=== PATIENT | female | born 2000 | race Hispanic/Latino ===

== ENCOUNTER 2023-01-20 18:04 | Emergency (ER) | payer MEDICAID, SELFPAY ==
[2023-01-20 18:06] VITALS: BP 120/91; PULSE 98; RESP 14; TEMP 36.6; O2SAT 99; BMI 34.7
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
[2023-01-20] MEDS: Ondansetron 4 MG/2 ML Vial IV (18:43)
[2023-01-20] MEDS: Morphine 4 MG/ML Syringe IV (18:44)
[2023-01-20 18:51] LABS: Absolute Lymphocyte Count 2.57 X10^3/uL (0.83-4.51); Basophil# 0.07 X10^3/uL; Basophil% 0.8 % (0-1); Eosinophils% 1.2 % (0-5); Hematocrit 42.8 % (37-47); Lymphocyte # 2.57 X10^3/ul (0.83-4.51); Lymphocyte % 30.4 % (19-41); Mean Corp Hgb Conc 32.7 g/dL (32-36); Mean Corpuscular Hgb 28.7 pg (27.0-32.0); Mean Corpuscular Volume 87.7 fL (81-99); Mean Platelet Vol. 9.8 fl (6.2-12.0); Monocyte# 0.67 X10^3/uL; Monocyte% 7.9 % (0-10); NRBC Flagged by Analyzer 0 % (0-5); Neutrophil # 5.03 X10^3/uL (2.7-7.7); Neutrophil % 59.5 % (47-70); Platelet Count 291 K/mm3 (150-450); RBC Distribution Width CV 12.6 % (11.6-14.6); RBC Distribution Width SD 40.3 fl (35.1-43.9); Red Blood Count 4.88 M/mm3 (4.2-5.4); White Blood Count 8.5 K/mm3 (4.4-11.0)
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
[2023-01-20 19:17] LABS: AST(SGOT) 15 U/L (15-37); Alanine Aminotransfer ALT/SGPT 44 U/L (13-56); Albumin, Serum 3.7 g/dL (3.2-5.0); Alkaline Phosphatase 63 U/L (45-117); Anion Gap 5 (5-15); BUN 9 mg/dL (7-18); Calcium,Total 8.4 mg/dL (8.5-10.1); Chloride 108 mmol/L (98-107); Creatinine, Serum 0.75 mg/dL (0.55-1.02); EST Glomerular Filtration Rate 101 mL/min (>60); Est Glom Filt Rate - Afr Amer 122 mL/min (>60); Globulin 3.8 g/dL (2.2-4.2); Glucose 98 mg/dL (74-106); Lipase 38 U/L (13-75); Potassium 3.8 mmol/L (3.5-5.1); Protein, Total 7.5 g/dL (6.4-8.2); Sodium Level 141 mmol/L (136-145)
[2023-01-20 19:26] LABS: Bacteria 0 SEEN /hpf (None Seen); Mucous, Urine 0 SEEN /hpf (<or=2+)
[2023-01-20 19:57] LABS: Color, Urine Yellow (Yellow); Glucose, Dipstick Normal (Normal); Ketone-Dipstick 5 mg/dl (Negative); Leukocyte Esterase-Dipstick 100 /ul (Negative); Nitrite-Dipstick Negative (Negative); Occult Blood-Urine 10 /ul (Negative); Protein-Dipstick 30 mg/dl (Negative); Specific Gravity, Urine 1.015 (1.002-1.030); Urine Clarity Clear (Clear); Urine Urobilinogen 1 mg/dl (Normal)
[2023-01-20 20:19] LABS: Urine Bilirubin Dipstick 1 mg/dL (Negative)
[2023-01-20 20:37] LABS: Red Blood Cells-Urine 0-5 SEEN /hpf (0-5); Squamous Epithelial Cells - UA 0-5 SEEN /hpf (5-10); White Blood Cells 5-10 SEEN /hpf (0-5)
== END 2023-01-20 20:12 | disposition home or self-care (01) ==
PROVIDERS: Emergency Provider Emergency Medicine; Visit Provider Emergency Medicine
DX: S30.1XXA Contusion of abdominal wall, initial encounter (principal); S20.20XA Contusion of thorax, unspecified, initial encounter; V89.2XXA Person injured in unspecified motor-vehicle accident, traffic, initial encounter
CPT/HCPCS: 71260; 73630; 74177; 80053; 81001; 83690; 85025; 93005; 96374; 96375; 99283; Q9967; A4216; J2405

== ENCOUNTER 2023-07-26 22:25 | Emergency (ER) | payer MEDICAID, SELFPAY ==
[2023-07-26 22:25] VITALS: BP 134/93; PULSE 111; RESP 24; TEMP 36.3; O2SAT 98; BMI 34.3
--- NOTE | 2023-07-26 22:41 | EDS_ITS ---
HPI History of Present Illness Chief Complaint: General Illness Informant: patient Narrative Narrative: Patient has complaints of feeling ill for about a week now. It started with fevers. She has developed aches. She quickly developed a cough. She states the cough causes soreness in her chest. It is soreness with coughing but not chest pain continually. She has had runny nose. Some ear pressure. She states now she is getting to lose her voice. She has been trying to maintain fluids but appetite has been down. But no vomiting or nausea. Initially she was not moving her bowels but now she is move them and has had blood in them a little bit. But she is not having abdominal pain. No history of inflammatory bowel disease in her the family. No history of heart disease. No history of DVT or PE. No recent travel surgery or immobilization. She is not on control pill. She has not had hemoptysis. PFSH PFSH Home Medications hydrocodone-acetaminophen 5-325mg 5mg-325mg 1 tab PO Q4H PRN PRN Pain 3 days #10 TABLETS 01/20/23 [Rx Last Taken Unknown] hydrocodone-acetaminophen 5-325mg 5mg-325mg 1 tab PO Q6H PRN PRN Pain 3 days #10 TABLETS 01/20/23 [Rx Last Taken Unknown] Allergy/AdvReac Type Severity Reaction Status Date / Time No Known Allergies Allergy Verified 07/26/23 22:28 Social History Smoking Status: Never smoker ROS ROS ED ROS Narrative A complete review of systems was performed and is negative except as documented in the history of present illness. Some specific details below. Constitutional: Positive fevers chills and myalgias and malaise. EYE: No visual complaints or pain. ENT: Initially sore throat. Now not sore but losing voice. Nasal congestion rhinorrhea and earaches. CV: No chest pain or palpitations except her chest is sore with coughing. Respiratory: Frequent cough. No sputum production or hemoptysis. Not actually short of breath. GI: Appetite has been down. No nausea vomiting. She has had initially poor bowel movements but was not eating. Now she has a little bit of blood when she moves her bowels. : No frequency dysuria or hematuria. Musculoskeletal: No recent trauma. She does have some diffuse myalgias. Skin: No rash. Nondiaphoretic. Neuro: No weakness or numbness. Endocrine: No polyuria or polydipsia. EXAM Physical Exam Narrative Exam Narrative: CONSTITUTIONAL: Patient is nontoxic in appearance. The patient looks comfortable. Work of breathing looks normal. She does have a frequent dry cough. HEENT: No notable trauma. Mucous membranes still moist. No sinus tenderness. No indication of pain with swallowing. No exudate. Voice is just slightly raspy but no difficulty handling secretions. Tympanic membranes are both completely clear. EYES: No conjunctival injection. No proptosis. No icterus. NECK:No JVD. No stridor. CARDIOVASCULAR: Mildly tachycardic rate. Regular rhythm. No notable murmur. No JVD. RESPIRATORY: No respiratory distress. Breathing is unlabored. Deep breaths do cause a cough. She has a slight wheeze with her cough or forced expiration. No actual pain taking a deep breath but she does have some discomfort with coughing. She also has reproducible parasternal chest wall tenderness on palpation. GASTROINTESTINAL: Not distended. Bowel sounds are normal. No tenderness. No guarding. No rebound. No palpable mass. No bruit is heard. Overall abdomen quite benign. GENITOURINARY: No tenderness over the bladder. No CVA tenderness. MUSCULOSKELETAL: Atraumatic. No peripheral edema. No cord. No tenderness along the deep venous system. No asymmetry. No distended veins. NEUROLOGICAL: Patient is alert and appropriate. No focal deficit noted. SKIN: No noted rashes. No diaphoresis. PSYCHIATRIC: Patient is calm. Mood is appropriate. Const Vital Signs: 07/26/23 22:25 07/26/23 22:54 07/26/23 23:33 Temperature 97.4 F L Temperature Source Temporal Pulse Rate 111 H 115 H 110 H Respiratory Rate 24 H 20 H 14 Blood Pressure 134/93 H 123/88 H Blood Pressure Mean 106 99 Pulse Ox 98 97 Oxygen Delivery Method Room Air Room Air MDM MDM MDM Narrative Medical decision making narrative: My independent interpretation of the patient's PA and lateral chest x-ray shows no acute process. Final reading is pending. Patient's CBC is normal including hemoglobin and platelets. Patient's electrolytes are overall normal other than mild elevation of glucose at 118. Patient's viral studies show positive influenza B which is consistent with her symptoms. I explained to the patient that she is not a candidate for Tamiflu. We discussed diet, fluids, fever control, isolating oneself and expected course of illness as well as reasons to return. Lab Data Attestation: I reviewed the patient's lab results. Labs: Laboratory Results - last 24 hr 07/26/23 22:45 WBC 6.6 RBC 4.69 Hgb 13.3 Hct 41.8 MCV 89.1 MCH 28.4 MCHC 31.8 L RDW Std Deviation 41.3 RDW Coeff of Mercedes 12.7 Plt Count 224 MPV 10.0 Immature Gran % (Auto) 0.300 Neut % (Auto) 67.2 Lymph % (Auto) 21.0 [place] % (Auto) 11.2 H Eos % (Auto) 0.0 Baso % (Auto) 0.3 Absolute Neuts (auto) 4.4 Absolute Lymphs (auto) 1.38 Nucleated RBC % 0 Sodium 138 Potassium 3.6 Chloride 106 Carbon Dioxide 27.0 Anion Gap 5 BUN 9 Creatinine 0.81 Estim Creat Clear Calc 97.52 Est GFR (MDRD) Af Amer 111 Est GFR (MDRD) Non-Af 92 BUN/Creatinine Ratio 11.2 Glucose 118 H Calcium 8.5 Discharge Plan Triage Chief Complaint: General Illness ED Provider: Michael Alejo Dx/Rx/DC Orders Clinical Impression: Viral URI with cough, Influenza B Instructions: ED Influenza (Adult) Prescriptions: No Action hydrocodone-acetaminophen 5-325 mg tablet 1 tab PO Q6H PRN PRN (Reason: Pain) 3 Days Qty: 10 0RF hydrocodone-acetaminophen 5-325 mg tablet 1 tab PO Q4H PRN PRN (Reason: Pain) 3 Days Qty: 10 0RF Stand Alone Forms: ED Work / School Excuse Primary Care Provider: MARGUERITE POLANCO Referrals: MARGUERITE POLANCO [Other] - 3-5 Days if not improving Disposition Disposition: Home, Self Care
[2023-07-26] MEDS: Ipratropium/Albuterol Sulfate 3 ML AMPUL.NEB INHALATION (22:53)
[2023-07-26 22:54] VITALS: PULSE 115; RESP 20
[2023-07-26 22:56] LABS: Absolute Lymphocyte Count 1.38 X10^3/uL (0.83-4.51); Absolute Neutrophil Count 4.4 X10^3/uL (2.0-7.7); Basophil# 0.02 X10^3/uL; Basophil% 0.3 % (0-1); Hematocrit 41.8 % (37-47); Hemoglobin 13.3 g/dL (12.0-15.0); Lymphocyte # 1.38 X10^3/ul (0.83-4.51); Mean Corp Hgb Conc 31.8 g/dL (32-36); Mean Corpuscular Hgb 28.4 pg (27.0-32.0); Mean Corpuscular Volume 89.1 fL (81-99); Monocyte# 0.74 X10^3/uL; Monocyte% 11.2 % (0-10); NRBC Flagged by Analyzer 0 % (0-5); Neutrophil # 4.42 X10^3/uL (2.7-7.7); Neutrophil % 67.2 % (47-70); Platelet Count 224 K/mm3 (150-450); RBC Distribution Width CV 12.7 % (11.6-14.6); RBC Distribution Width SD 41.3 fl (35.1-43.9); Red Blood Count 4.69 M/mm3 (4.2-5.4); White Blood Count 6.6 K/mm3 (4.4-11.0)
[2023-07-26 23:03] LABS: Anion Gap 5 (5-15); BUN 9 mg/dL (7-18); BUN/Creat Ratio 11.2 RATIO (10-20); Calcium,Total 8.5 mg/dL (8.5-10.1); Chloride 106 mmol/L (98-107); Creatinine, Serum 0.81 mg/dL (0.55-1.02); EST Glomerular Filtration Rate 92 mL/min (>60); Est Glom Filt Rate - Afr Amer 111 mL/min (>60); Estimated Creatinine Clearance 97.52 ml/min; Glucose 118 mg/dL (74-106); Potassium 3.6 mmol/L (3.5-5.1); Sodium Level 138 mmol/L (136-145)
--- OUTSIDE RECORDS SUMMARY | 2023-07-26 23:08 | XMS RPT_ITS | CCD ---
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 Grandmother age 63 Heart disease Maternal Grandmother age 63 Diabetes Maternal Grandmother age 63 Breast cancer Maternal Grandmother age 63 Arthritis Maternal Grandmother age 63 No Known Problems Father unknown Miscarriages / Stillbirths Mother Alfredo Hypertension Mother Lafredo Arthritis Mother Alfredo Breast cancer Mother Alfredo 35 alive age 50 Hyperlipidemia Mother Alfredo Ovarian cancer Mother Alfredo 35 No Known Problems Brother No Known Problems Brother Miscarriages / Stillbirths Sister No Known Problems Sister Health Maintenance Topic Date Due Hepatitis B Vaccines (1 of 3 - 3-dose series) Never done COVID-19 Vaccine (1) Never done MMR Vaccines (1 of 1 - Standard series) Never done Varicella Vaccines (1 of 2 - 2-dose childhood series) Never done HPV Vaccines (1 - 2-dose series) Never done Influenza Vaccine (1) 01/30/2023 Depression Screening 07/01/2023 Pap Smear 10/16/2025 Lipid Panel 07/01/2027 DTaP/Tdap/Td Vaccines (2 - Td or Tdap) 08/06/2032 Zoster Vaccines (1 of 2) 2048 HIV Screening Completed Hepatitis C Screening Completed HIB Vaccines Aged Out IPV Vaccines Aged Out Hepatitis A Vaccines Aged Out Meningococcal Vaccine Aged Out Rotavirus Vaccines Aged Out Pneumococcal Vaccine: Pediatrics (0 to 5 Years) and At-Risk Patients (6 to 64 Years) Aged Out Objective BP 105/61 (BP Location: Left arm, Patient Position: Sitting) Pulse 72 Temp 36.7 C (98 F) (Temporal) Ht 4' 11 (1.499 m) Wt 172 lb 12.8 oz (78.4 kg) BMI 34.90 kg/m Physical Exam Vitals and nursing note reviewed. Constitutional: Appearance: Normal appearance. Eyes: Extraocular Movements: Extraocular movements intact. Pupils: Pupils are equal, round, and reactive to light. Cardiovascular: Rate and Rhythm: Normal rate and regular rhythm. Pulses: Normal pulses. Heart sounds: Normal heart sounds. Pulmonary: Effort: Pulmonary effort is normal. Breath sounds: Normal breath sounds. Abdominal: General: Abdomen is flat. Bowel sounds are normal. Palpations: Abdomen is soft. Musculoskeletal: General: Normal range of motion. Cervical back: Normal range of motion and neck supple. No tenderness. Lymphadenopathy: Cervical: No cervical adenopathy. Skin: General: Skin is warm and dry. Capillary Refill: Capillary refill takes less than 2 seconds. Neurological: Mental Status: She is alert. Data Reviewed and Summarized Labs: Results for orders placed or performed in visit on 10/16/22 Hemoglobin A1c Result Value Ref Range HEMOGLOBIN A1C - [facility] 5.1 <5.7 % of total Hgb Testo,Free/Total-Female Result Value Ref Range TESTOSTERONE, TOTAL, MS 53 (H) 2 - 45 ng/dL TESTOSTERONE, FREE 13.1 (H) 0.1 - 6.4 pg/mL SEX HORMONE BINDING GLOBULIN 23 17 - 124 nmol/L Sureswab(R) Advanced Vaginitis Plus, TMA ([facility]) Result Value Ref Range SURESWAB(R) ADV BACTERIAL VAGINOSIS (BV), TMA POSITIVE (A) NEGATIVE Angelina species NOT DETECTED NOT DETECTED Angelina glabrata NOT DETECTED NOT DETECTED Trichomonas Vaginalis (TV) NOT DETECTED NOT DETECTED C. TRACHOMATIS RNA NOT DETECTED NOT DETECTED N. GONORRHOEAE RNA NOT DETECTED NOT DETECTED Pap Smear Result Value Ref Range Case Report Gynecologic Cytology Case: [id number] Authorizing Provider: Kim Garcia MD Collected: 10/16/2022 1009 Ordering Location: [facility] Received: 10/16/2022 1010 Obstetrics & Gynecology First Screen: Raina Deluna [place], CT Specimen: ThinPrep, Pap, Cervical/Endocervical Specimen Adequacy The specimen is satisfactory for examination. Endocervical/transformation component present. Interpretation NEGATIVE FOR SQUAMOUS INTRAEPITHELIAL LESION OR MALIGNANCY. Other Findings Shift in virgie suggestive of bacterial vaginosis. Additional Information Gynecologic cytology smear evaluation is subject to false positive and false negative interpretation as evidenced by published data. Your patient's Pap test results should thus be interpreted in conjunction with their clinical history and physical examination. Case Screening Location [facility], [address] [place] [id number]; CLIA: [id number]; Joint Commission: [id number]; CAP: [id number] Imaging/Testing: MARGUERITE POLANCO MD [facility] Medicine (Comment: Please note this report has been produced using speech recognition software and may contain errors related to that system including errors in grammar, punctuation, and spelling, as well as words and phrases that may be inappropriate. If there are any questions or concerns please feel free to contact the dictating provider for clarification.) Pt asked if they have been to specialist,been in ER /hospitalized or had testing since last visit. Yes Patient was able to ambulate safely to the examination room. Provider was not notified of possible fall risk INDIRECT SUPERVISION THIS SERVICE IS TO BE BILLED UNDER THE PRIMARY CARE EXCEPTION (MODIFIER -) During or immediately after this visit, I discussed this case with the treating resident. Our discussion included the history obtained by the resident, the resident's exam findings, and the resident's treatment plan. The resident's note reflects the information we discussed, and I agree with the resident's assessment and treatment plan. -Addy Briones MD, [facility] Family Medicine documented in this encounter [facility] 08-08-2022 Telephone encounter Note Spoke to patient regarding genetic testing results which were negative, meaning there were no mutations or VUS in the 36 genes analyzed. Aware that she will continue to be followed up as a high risk patient. Reminded of follow up appointment on 07/05/23 at 330pm. Aware that she can be seen here for any breast issues prior to this appointment. Patient agrees with the plan and verbalizes understanding. Copy of report mailed to patient. Copy already scanned into Media [facility] 08-08-2022 Miscellaneous Notes Spoke to patient regarding genetic testing results which were negative, meaning there were no mutations or VUS in the 36 genes analyzed. Aware that she will continue to be followed up as a high risk patient. Reminded of follow up appointment on 07/05/23 at 330pm. Aware that she can be seen here for any breast issues prior to this appointment. Patient agrees with the plan and verbalizes understanding. Copy of report mailed to patient. Copy already scanned into Media Left message for patient to call for results. documented in this encounter [facility] 08-06-2022 History of Presen t illness Narrative Patient was able to ambulate safely to the examination room. Provider was not notified of possible fall risk Pt asked if they have been to specialist,been in ER /hospitalized or had testing since last visit. YES-seen by breast center in [place]. Had breast exam and lipid panel drawn Images from the original note were not included. [facility] [address] [facility] [address] Dept: [phone] Dept Loc: [phone] Visit type: Established Reason for Visit: Follow-up Assessment and Plan 1. Obesity, Class I, BMI 30.0-34.9 (see actual BMI) - [facility] -Surgical Wt Mgmt 2. Need for tetanus booster - Tdap vaccine greater than or equal to 7 years old IM Apply for job - where she needs immunizations - up to date and tetanus given today. Struggles with obesity - healthy lifestyle and limited diet. Uses all organic food, eats all fresh food, use [employer] to track all food that she eats on a regular bases. Current treatment plan is effective, no change in therapy, orders and follow up as documented in EMR, reviewed compliance with lifestyle measures, reviewed diet, exercise and weight control, reviewed medications and side effects in detail Patient voiced full understanding and all questions were answered. Costs of various treatment options were considered in formulating this treatment plan with the patient. Patient was involved and agreeable in shared decision making. Follow up in about 3 months (around 11/06/2022) for weight loss. Subjective HPI Patient here for follow up: Saw genetic counselor and needs to follow up with an OBGYN - will need to have screening yearly given her high risk. Continues to struggle with losing weight - uses a daily tracker, exercises regularly. Did not tolerate spironolactone as it made her light headed. Needs form filled for her new job - had all childhood immunizations, does not live in high risk TB area - never lived out of the country, will need TDAP shot. No fever or chills. No abdomen pain . No other concerns expressed. Review of Systems As above No Known Allergies Outpatient Medications Prior to Visit Medication Sig Dispense Refill Levonorgestrel (Kyleena) 19.5 MG intrauterine device 1 each by IntraUTERine route Once. spironolactone (Aldactone) 25 MG tablet Take 0.5 tablets (12.5 mg) by mouth daily. 15 tablet 5 levonorgestrel (Liletta) 20.1 MCG/DAY IUD 1 each by IntraUTERine route Once. No facility-administered medications prior to visit. 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 Amin Social History Tobacco Use Smoking status: Never Smokeless tobacco: Never Substance Use Topics Alcohol use: Yes Comment: socially every other week No past surgical history on file. Family History Problem Relation Name Age of Onset Miscarriages / Stillbirths Mother Alfredo Hypertension Mother Alfredo Arthritis Mother Alfredo Breast cancer Mother Alfredo 35 alive age 50 Hyperlipidemia Mother Alfredo Ovarian cancer Mother Alfredo 35 No Known Problems Father unknown Miscarriages / Stillbirths Sister No Known Problems Sister No Known Problems Brother No Known Problems Brother Hypertension Maternal Grandmother age 63 Heart disease Maternal Grandmother age 63 Diabetes Maternal Grandmother age 63 Cancer Maternal Grandmother age 63 possibly breast Arthritis Maternal Grandmother age 63 Health Maintenance Topic Date Due Hepatitis B Vaccines (1 of 3 - 3-dose series) Never done HIV Screening Never done COVID-19 Vaccine (1) Never done MMR Vaccines (1 of 1 - Standard series) Never done Varicella Vaccines (1 of 2 - 2-dose childhood series) Never done HPV Vaccines (1 - 2-dose series) Never done Pap Smear Never done Influenza Vaccine (1) 11/28/2022 (Originally 01/30/2022) Lipid Panel 07/01/2027 DTaP/Tdap/Td Vaccines (2 - Td or Tdap) 08/06/2032 Zoster Vaccines (1 of 2) 2048 Hepatitis C Screening Completed HIB Vaccines Aged Out IPV Vaccines Aged Out Hepatitis A Vaccines Aged Out Meningococcal Vaccine Aged Out Rotavirus Vaccines Aged Out Pneumococcal Vaccine: Pediatrics (0 to 5 Years) and At-Risk Patients (6 to 64 Years) Aged Out Objective BP 118/77 Pulse 68 Ht 4' 11 (1.499 m) Wt 171 lb 11.2 oz (77.9 kg) BMI 34.68 kg/m Physical Exam Vitals and nursing note reviewed. HENT: Mouth/Throat: Pharynx: Oropharynx is clear. Eyes: Conjunctiva/sclera: Conjunctivae normal. Cardiovascular: Rate and Rhythm: Normal rate. Heart sounds: No murmur heard. Pulmonary: Effort: Pulmonary effort is normal. No respiratory distress. Breath sounds: No wheezing or rales. Abdominal: General: Bowel sounds are normal. Tenderness: There is no abdominal tenderness. Musculoskeletal: Right lower leg: No edema. Left lower leg: No edema. Skin: General: Skin is warm. Capillary Refill: Capillary refill takes less than 2 seconds. Neurological: General: No focal deficit present. Mental Status: She is alert. Data Reviewed and Summarized Labs: Lab Results Component Value Date WBC 7.0 12/14/2019 HGB 14.4 12/14/2019 CHOL 169 12/14/2019 TRIG 72 12/14/2019 HDL 48 12/14/2019 CREATININE 0.68 07/01/2022 BUN 8 07/01/2022 CO2 27 07/01/2022 Results for orders placed or performed in visit on 07/01/22 Lipid panel Result Value Ref Range CHOLESTEROL, TOTAL 187 <200 mg/dL HDL CHOLESTEROL 48 (L) > OR = 50 mg/dL TRIGLYCERIDES 99 <150 mg/dL LDL-CHOLESTEROL 118 (H) mg/dL (calc) CHOL/HDLC RATIO 3.9 <5.0 (calc) NON HDL CHOLESTEROL 139 (H) <130 mg/dL (calc) Basic Metabolic Panel ([facility]) Result Value Ref Range GLUCOSE 93 65 - 99 mg/dL Urea Nitrogen (BUN) 8 7 - 25 mg/dL Creatinine 0.68 0.50 - 0.96 mg/dL EGFR 125 > OR = 60 mL/min/1.73m2 BUN/CREATININE RATIO NOT APPLICABLE 6 - 22 (calc) SODIUM 136 135 - 146 mmol/L POTASSIUM 4.5 3.5 - 5.3 mmol/L CHLORIDE 104 98 - 110 mmol/L Carbon Dioxide (CO2) 27 20 - 32 mmol/L CALCIUM 9.3 8.6 - 10.2 mg/dL HIV-1 and HIV-2 Antigen-Antibody Screen with Reflex ([facility]) Result Value Ref Range HIV AG/AB, 4TH GEN - [facility] NON-REACTIVE NON-REACTIVE Hepatitis C antibody Result Value Ref Range HEPATITIS C ANTIBODY NON-REACTIVE NON-REACTIVE INDEX - [facility] 0.11 <1.00 Imaging/Testing: No image results found. Elmer Tucker [facility] Medicine 08/06/22 5:17 PM Type: INDIRECT I have discussed the care of this patient with the resident . I have reviewed the med list,problem list and history. I have reviewed the note which reflects the information we discussed and agree with the assessment and plan Brief summary of history: and additional steele elements of the treatment plan include Obesity and pcos.-sent to bariatrics. Hm-high risk breast ca screen-seeing specialist documented in this encounter [facility] 08-01-2022 Telephone encounter Note Left message for patient to call for results. [facility] 09-05-2021 Hospital Discharg e instructions Patient Education 09/05/2021 18:01:20 Viral Syndrome (Adult) Viral Syndrome (Adult) A viral illness may cause a number of symptoms such as fever. Other symptoms depend on the part of the body that the virus affects. If it settles in your nose, throat, and lungs, it may cause cough, sore throat, congestion, runny nose, headache, earache and other ear symptoms, or shortness of breath. If it settles in your stomach and intestinal tract, it may cause nausea, vomiting, cramping, and diarrhea. Sometimes it causes generalized symptoms like aching all over, feeling tired, loss of energy, or loss of appetite. A viral illness usually lasts anywhere from several days to several weeks, but sometimes it lasts longer. In some cases, a more serious infection can look like a viral syndrome in the first few days of the illness. You may need another exam and additional tests to know the difference. Watch for the warning signs listed below for when to seek medical advice. Home care Follow these guidelines for taking care of yourself at home: If symptoms are severe, rest at home for the first 2 to 3 days. Stay away from cigarette smoke - both your smoke and the smoke from others. You may use elnp-gwy-bijjvyg acetaminophen or ibuprofen for fever, muscle aching, and headache, unless another medicine was prescribed for this. If you have chronic liver or kidney disease or ever had a stomach ulcer or gastrointestinal bleeding, talk with your healthcare provider before using these medicines. No one who is younger than 18 and ill with a fever should take aspirin. It may cause severe disease or . Your appetite may be poor, so a light diet is fine. Avoid dehydration by drinking 8 to 12, 8-ounce glasses of fluids each day. This may include water; orange juice; lemonade; apple, grape, and cranberry juice; clear fruit drinks; electrolyte replacement and sports drinks; and decaffeinated teas and coffee. If you have been diagnosed with a kidney disease, ask your healthcare provider how much and what types of fluids you should drink to prevent dehydration. If you have kidney disease, drinking too much fluid can cause it build up in the your body and be dangerous to your health. Zcae-ume-xsibwgl remedies won't shorten the length of the illness but may be helpful for symptoms such as cough, sore throat, nasal and sinus congestion, or diarrhea. Don't use decongestants if you have high blood pressure. Follow-up care Follow up with your healthcare provider if you do not improve over the next week. Call 911 Call 911 if any of the following occur: Convulsion Feeling weak, dizzy, or like you are going to faint Chest pain, or more than mild shortness of breath When to seek medical advice Call your healthcare provider right away if any of these occur: Cough with lots of colored sputum (mucus) or blood in your sputum Chest pain, shortness of breath, wheezing, or trouble breathing Severe headache; face, neck, or ear pain Severe, constant pain in the lower right side of your belly (abdominal) Continued vomiting (can t keep liquids down) Frequent diarrhea (more than 5 times a day); blood (red or black color) or mucus in diarrhea Feeling weak, dizzy, or like you are going to faint Extreme thirst Fever of 100.4 F (38 C) or higher, or as directed by your healthcare provider [id number] [employer]. [address] [place] [address]. All rights reserved. This information is not intended as a substitute for professional medical care. Always follow your healthcare professional's instructions. 09/05/2021 18:01:12 Pharyngitis, Report Pending Pharyngitis (Sore Throat), Report Pending Pharyngitis (sore throat) is often due to a virus. It can also be caused by streptococcus (strep), bacteria. This is often called strep throat. Both viral and strep infections can cause throat pain that is worse when swallowing, aching all over, headache, and fever. Both types of infections are contagious. They may be spread by coughing, kissing, or touching others after touching your mouth or nose. A test has been done to find out if you or your child have strep throat. Call this facility or your healthcare provider if you were not given your test results. If the test is positive for strep infection, you will need to take antibiotic medicines. A prescription can be called into your pharmacy at that time. If the test is negative, you probably have a viral pharyngitis. This does not need to be treated with antibiotics. Until you receive the results of the strep test, you should stay home from work. If your child is being tested, he or she should stay home from school. Home care Rest at home. Drink plenty of fluids so you won't get dehydrated. If the test is positive for strep, you or your child should not go to work or school for the first 2 days of taking the antibiotics. After this time, you or your child will not be contagious. You or your child can then return to work or school when feeling better. Use the antibiotic medicine for the full 10 days. Do not stop the medicine even if you or your child feel better. This is very important to make sure the infection is fully treated. It is also important to prevent medicine-resistant germs from growing. If you or your child were given an antibiotic shot, no more antibiotics are needed. Use throat lozenges or numbing throat sprays to help reduce pain. Gargling with warm salt water will also help reduce throat pain. Dissolve 1/2 teaspoon of salt in 1 glass of warm water. Children can sip on juice or a popsicle. Children 5 years and older can also suck on a lollipop or hard candy. Don't eat salty or spicy foods or give them to your child. These can irritate the throat. Other medicine for a child: You can give your child acetaminophen for fever, fussiness, or discomfort. In babies over 6 months of age, you may use ibuprofen instead of acetaminophen. If your child has chronic liver or kidney disease or ever had a stomach ulcer or GI bleeding, talk with your child s healthcare provider before giving these medicines. Aspirin should never be used by any child under 18 years of age who has a fever. It may cause severe liver damage. Other medicine for an adult: You may use acetaminophen or ibuprofen to control pain or fever, unless another medicine was prescribed for this. If you have chronic liver or kidney disease or ever had a stomach ulcer or GI bleeding, talk with your healthcare provider before using these medicines. Follow-up care Follow up with your healthcare provider or our staff if you or your child don't get better over the next week. When to seek medical advice Call your healthcare provider right away if any of these occur: Fever as directed by your healthcare provider. For children, seek care if: oYour child is of any age and has repeated fevers above 104 F (40 C). oYour child is younger than 2 years of age and has a fever of 100.4 F (38 C) for more than 1 day. oYour child is 2 years old or older and has a fever of 100.4 F (38 C) for more than 3 days. New or worsening ear pain, sinus pain, or headache Painful lumps in the back of neck Stiff neck Lymph nodes are getting larger Can t swallow liquids, a lot of drooling, or can t open mouth wide due to throat pain Signs of dehydration, such as very dark urine or no urine, sunken eyes, dizziness Trouble breathing or noisy breathing Muffled voice New rash Other symptoms getting worse Prevention Here are steps you can take to help prevent an infection: Keep good hand washing habits. Don t have close contact with people who have sore throats, colds, or other upper respiratory infections. Don t smoke, and stay away from secondhand smoke. Stay up to date with of your vaccines. [phone] [employer]. [address] [place] [address]. All rights reserved. This information is not intended as a substitute for professional medical care. Always follow your healthcare professional's instructions. Follow Up Care 09/05/2021 17:48:19 With:Call Physician Referral Address:Unknown When:2-4 days Comments:Schedule appointment for follow-up and to establish a regular doctor if your symptoms persist.Drink plenty of fluids and rest.Warm salt water gargles, Chloraseptic spray and throat lozenges for symptomatic relief.Use Tylenol Advil or Aleve for fever, body aches and headaches as needed.Return to the ED if symptoms worsen. [facility] Evaluation + Plan note No data available for this section [facility] Diagnosis Obesity, Class I, BMI 30.0-34.9 (see actual BMI)- Primary Constipation, unspecified constipation type [facility] Diagnosis Obesity, Class I, BMI 30.0-34.9 (see actual BMI)- Primary Constipation, unspecified constipation type [facility] Diagnosis Encounter for IUD removal- Primary Screen for STD (sexually transmitted disease) Screening examination for venereal disease [facility] Attachments The following attachments cannot be sent through Care Everywhere. * Weight Loss [facility] ([place]) [facility] No data available for this section [facility] Reason for referral (narrative)* Consultation (Routine) - Pending Review Specialty Diagnoses / Procedures Referred By Contac t Referred To Contact Bariatric Surgery / Bariatrics Diagnoses Obesity, Class I, BMI 30.0-34.9 (see actual BMI) Procedures [place] OFFICE/OUTPATIENT NEW HIGH MDM 60-74 MINUTES Elmer Tucker MD [address] [place] [address] [facility] [address] [place] [address] Referral ID Status Reason Start Date Expiration Date Visits Requested Visits Authorized [id number] Pending Review Specialty Services Required 08/06/2022 08/06/2023 1 1 [facility] for referral (narrative)* Consultation (Routine) - Pending Review Specialty Diagnoses / Procedures Referred By Contac t Referred To Contact Bariatrics Diagnoses Obesity, Class I, BMI 30.0-34.9 (see actual BMI) Procedures [place] OFFICE/OUTPATIENT NEW HIGH MDM 60-74 MINUTES Marguerite Polanco MD [address] [place] [address] Adeline Zhu MD [address] [place] [address] Referral ID Status Reason Start Date Expiration Date Visits Requested Visits Authorized [id number] Pending Review Specialty Services Required 12/16/2022 12/16/2023 [facility]: PERFORM Event Display: Patient Summary Documents Authored Date: [id number] [facility] Summary Purpose Family History No Family History Records Found Advance Directives No Advanced Directives Records FoundNo Advanced Directives Records Found Additional Source Comments Care Teams (unrecognized sec tion and content) Care Team Personnel Name: PHYSICIAN, NONE Position: Physician Member Role: Primary Care Physician Name: LOUISE STEPHENSON MD Position: ED Physician Member Role: ED Physician Address: Address: [facility] [address] [place] [address]- Care Team Related Persons Name: SEEMA MILES Name: COLE ALFREDO Developmental Specialist Relationship Specialty Start Date End Date Elmer Tucker MD [address] [place], [place] [id number] PCP - General Family Medicine 07/01/22 Reason for Visit (unrecogniz ed section and content) Reason Comments Follow-up Weight management Reason Comments STI Screening Procedure IUD removal Reason Onset Date Comments Contraception 04/29/2023 [facility] I[facility] INFORMATION SOURCE (unrecogn ized section and content) DATE CREATED AUTHOR AUTHOR'S ORGANIZ ATION 05/02/2023 [facility] FOR RECORDS PERTAINING TO PATIENTS WHO ARE OR HAVE BEEN ENROLLED IN A CHEMICAL DEPENDENCY/SUBSTANCEABUSE PROGRAM, SOME INFORMATION MAY BE OMITTED. This clinical summary was aggregated from multiple sources. Caution should be exercised in using it in the provision of clinical care. This summary normalizes information from multiple sources, and as a consequence, information in this document may materially change the coding, format and clinical context of patient data. In addition, data may be omitted in some cases. CLINICAL DECISIONS SHOULD BE BASED ON THE PRIMARY CLINICAL RECORDS. [employer] provides no warranty or guarantee of the accuracy or completeness of information in this document.
--- NOTE | 2023-07-26 23:20 | RAD_ITS ---
STUDY: X-RAY CHEST REASON FOR EXAM: Female, 23 years old. cough TECHNIQUE: PA and lateral views of the chest. COMPARISON: None. FINDINGS: The lungs are clear and underexpanded. There is no demonstrated pleural abnormality. Normal size heart. Normal mediastinum and lucero. Normal visualized pulmonary arteries. Normal visualized aortic arch and descending thoracic aorta. Normal visualized thoracic spine. Normal visualized ribs, clavicles, and shoulders. There is no demonstrated abnormality of the visualized soft tissue structures of the upper abdomen. RAD/Chest PA and Lateral IMPRESSION: No acute cardiopulmonary disease. Electronically Signed: Tanesha Boyd MD at 23:38 EST ,
[2023-07-26 23:33] VITALS: BP 123/88; PULSE 110; RESP 14; O2SAT 97
[2023-07-26 23:42] VITALS: BP 112/59; PULSE 75; RESP 12; TEMP 36.6; O2SAT 100
[2023-07-26] MEDS: Acetaminophen 500 MG Tablet 1000 MG PO (23:45)
== END 2023-07-26 23:51 | disposition home or self-care (01) ==
PROVIDERS: Emergency Provider Emergency Medicine; Visit Provider Emergency Medicine
DX: J10.1 Influenza due to other identified influenza virus with other respiratory manifestations (principal)
CPT/HCPCS: 71046; 80048; 85025; 87631; 94640; 99283; A4216